=== PATIENT | male | born 1975 | race Caucasian/White ===

== ENCOUNTER 2023-12-19 18:21 | Emergency (ER) | payer OTHER, SELFPAY ==
--- NOTE | ~2023-12-19 | CT_ITS ---
EXAMINATION: CT abdomen pelvis wo con DATE: 12/19/2023 19:32 INDICATION: Right flank pain TECHNIQUE: Computed tomography (CT) of the abdomen and pelvis was performed without intravenous contr ast. The dose-length product was 405.19 mGy-cm. Automated exposure control and iterative reconstructi on technique were employed. COMPARISON: None. FINDINGS: Lung bases unremarkable. Heart size normal. No significant pleural or pericardial effusion. The liver, spleen, pancreas, adrenal glands and kidneys are unremarkable. No renal/ureteral stones o r hydronephrosis. Bladder is unremarkable. No abnormal pelvic masses or fluid collections. There is m ild thickening of the sigmoid colon with colonic diverticulosis and subtle pericolonic fatty infiltra tion, suspicious for mild acute diverticulitis. Small fat-containing umbilical hernia. No abnormal pe lvic masses or fluid collections. IMPRESSION: 1. Possible mild uncomplicated sigmoid diverticulitis. No evidence for perforation or abscess. Reviewed, dictated and finalized at location B. IMPRESSION: 1. Possible mild uncomplicated sigmoid diverticulitis. No evidence for perforat ion or abscess.
[2023-12-19 18:21] VITALS: BP 132/70; PULSE 52; RESP 15; TEMP 36.6; O2SAT 98
[2023-12-19] MEDS: KETOROLAC 30 MG/ML VIAL (*BKC) IM (19:08)
[2023-12-19] MEDS: LIDOCAINE 5% PATCH 1 PATCH TRANSDERM (19:09)
[2023-12-19] MEDS: diazePAM INJ (*CRX) 10 MG/2 ML SYRINGE 5 MG IM (19:11)
--- NOTE | 2023-12-19 19:18 | ED.BACK ---
HPI - Back Pain/Injury General Chief Complaint: Back Pain/Injury Stated Complaint: FLANK & LOW BACK PAIN SINSE 1500 Time Seen by Provider: 12/19/23 18:58 History of Present Illness HPI Narrative: Patient presenting here with right flank pain, denies any recent injuries but he did sneeze very hard yesterday but did not start having pain until today. He states that it comes in waves and hurts so badly that he was barely able to get to his phone to call for an ambulance. He did try taking Aleve earlier. Pain does not radiate. Has never had kidney stones before. No lower extremity pain or weakness Related Data Allergies Allergy/AdvReac Type Severity Reaction Status Date / Time No Known Allergies Allergy Verified 12/19/23 18:29 Review of Systems Review of Systems: All systems reviewed & are unremarkable except as noted in HPI and below Exam Narrative: EXAMINATION OF ORGAN SYSTEMS/BODY AREAS: Constitutional: Vital signs per nursing GENERAL:[No acute distress, non-toxic appearing.] HEAD: Normal with no signs of head trauma. EYES: EOMI, conjunctiva normal ENT: Hearing grossly intact LUNGS: Nonlabored breathing. HEART: [Regular rate and rhythm] ABD: [Soft], [nontender to palpation] EXT: Normal range of motion SKIN: [No rashes or lesions.] NEURO: [Alert and oriented x 3. No gross focal sensory or strength deficits.] PSYCH: Normal affect Course Vital Signs Vital signs: Vital Signs Temperature 98 F 12/19/23 18:21 Pulse Rate 52 L 12/19/23 18:21 Respiratory Rate 15 12/19/23 18:21 Blood Pressure 132/70 12/19/23 18:21 Pulse Oximetry 98 12/19/23 18:21 Oxygen Delivery Room Air 12/19/23 18:21 Temperature 98 F 12/19/23 18:21 Pulse Rate 60 12/19/23 21:24 Respiratory Rate 17 12/19/23 21:24 Blood Pressure 122/69 12/19/23 21:24 Pulse Oximetry 97 12/19/23 21:24 Oxygen Delivery Room Air 12/19/23 18:21 MDM - Back Pain/Injury MDM Narrative Medical decision making narrative: patient presents here with right-sided low back pain, pain does not radiate, I suspect most likely musculoskeletal pain/muscle spasms given the description, but I will also obtain a CT to rule out osseous cause or nephrolithiasis. Normal motor and sensory exam. Patient able to ambulate. No evidence of acute cord compression, osteomyelitis/discitis or cauda equina without saddle anesthesia, urinary retention/incontinence, numbness/tingling in lower extremities, fever, history of IV drug use, cancer or immunosuppression. Doubt AAA or aortic dissection without severe pain/discomfort or any neurovascular deficits. [Ketorolac 15mg IM and diazepam 5mg ] given for symptomatic relief On reevaluation, the symptoms are improved. Patient is able to rest more comfortably. Ambulating without difficulty. Labs within acceptable limits, patient given pain medicine which did help when he is much more comfortable on re-evaluation, CT does show uncomplicated diverticulitis, findings discussed with him, he is started on antibiotics, and he is stable for discharge with follow-up to GI and primary care. Patient is given return precautions and instructed to come back at any point in time for worsening pain Lab Data 12/19/23 20:38 12/19/23 20:38 Labs: Lab Results 12/19/23 12/19/23 Range/Units 19:45 20:38 WBC 8.3 (4.5-10.0) K/mm3 RBC 4.76 (4.6-6.20) M/mm3 Hgb 14.3 (14.0-18.0) g/dL Hct 42.5 (42.0-52.0) % MCV 89.3 (80-100) fl MCH 30.0 (26-34) pg MCHC 33.6 (32-36) g/dl RDW 14.3 (11.5-14.5) % Plt Count 265 (150-375) k/mm3 MPV 10.5 H (7.4-10.4) fl Immature Gran % (Auto) 0.4 (0-0.5) % Neut % (Auto) 73.9 H (45.5-73.1) % Lymph % (Auto) 19.0 (18.3-44.2) % [place] % (Auto) 5.6 (2.6-8.5) % Eos % (Auto) 0.7 (0-4.4) % Baso % (Auto) 0.4 (0.2-1.2) % Lymph # (Auto) 1.57 (0.9-3.2) K/mm3 [place] # (Auto) 0.5 (0.1-0.6) K/mm3 Eos # (Auto)
[2023-12-19 20:06] LABS: Appearance Urine Clear (Clear); Bilirubin Urine Negative (Negative); Blood Urine Negative (Negative); Color Urine Yellow (Yellow); Glucose Urine UA Negative (Negative); Ketones Urine 1+ mg/dL (Negative); Leukocyte Esterase Ur Negative LEU/UL (Negative); Nitrate Urine Negative (Negative); Protein Urine Negative (Negative); Specific Grav Ur 1.014 (1.001-1.035); Urobilinogen Urine 0.2 mg/dL (<2.0); pH Urine 5.5 (5.0-9.0)
[2023-12-19 20:09] LABS: Add Urine Microscopic? NO
[2023-12-19 20:43] LABS: Basophils Percent Auto 0.4 % (0.2-1.2); Eosinophils Absolute Auto 0.1 K/mm3 (0-0.3); Eosinophils Percent Auto 0.7 % (0-4.4); Hematocrit 42.5 % (42.0-52.0); Hemoglobin 14.3 g/dL (14.0-18.0); Immature Granulocyte Absolute 0.03 K/mm3 (0.00-0.031); Immature Granulocyte Percent A 0.4 % (0-0.5); Lymphocytes Absolute Auto 1.57 K/mm3 (0.9-3.2); Mean Corpuscular HGB Conc 33.6 g/dl (32-36); Mean Corpuscular Volume 89.3 fl (80-100); Mean Platelet Volume 10.5 fl (7.4-10.4); Monocytes Absolute Auto 0.5 K/mm3 (0.1-0.6); Monocytes Percent Auto 5.6 % (2.6-8.5); Neutrophils Absolute Auto 6.1 K/mm3 (1.3-6.7); Neutrophils Percent Auto 73.9 % (45.5-73.1); Platelet Count Result 265 k/mm3 (150-375); Red Blood Count 4.76 M/mm3 (4.6-6.20); Red Cell Distribution Width 14.3 % (11.5-14.5); White Blood Count 8.3 K/mm3 (4.5-10.0)
[2023-12-19 20:47] VITALS: PULSE 51; RESP 24; O2SAT 95
[2023-12-19 20:56] LABS: Anion Gap 6 mmol/L (4-12); Blood Urea Nitrogen 22 mg/dL (9-20); Calcium 9.6 mg/dL (8.4-10.2); Carbon Dioxide 27 mmol/L (22-30); Chloride 106 mmol/L (98-107); Estimated CRCL calculation 67 ml/min; Estimated Glomerular Filt Rate > 60; Glucose 92 mg/dL (65-110); Magnesium 2.2 mg/dL (1.6-2.3); Sodium 139 mmol/L (137-145)
[2023-12-19] MEDS: AMOXICILLIN/CLAVULANATE K 875-125 MG TAB 1 TABLET PO (21:18)
[2023-12-19 21:24] VITALS: BP 122/69; PULSE 60; RESP 17; O2SAT 97
== END 2023-12-19 21:25 | disposition home or self-care (01) ==
PROVIDERS: Emergency Provider Emergency Medicine; PCP Family Medicine
DX: K57.92 Diverticulitis of intestine, part unspecified, without perforation or abscess without bleeding (principal); M54.50 Low back pain, unspecified
CPT/HCPCS: 36415; 74176; 80048; 81003; 83735; 85025; 96372; 99284; A9270; J1885; J3360

== ENCOUNTER 2024-02-22 07:02 | Outpatient (CLI) | payer OTHER, SELFPAY ==
--- NOTE | ~2024-02-22 | MR_ITS ---
Procedure: MR lumbar spine wo con Ordering provider: Vernon Velasquez History: . Low back pain . Comparison: None. Technique: MRI lumbar spine without contrast. FINDINGS: SPINAL CORD: Normal. The cord ends at the level of L1-L2. VERTEBRAL BODIES: Normal height and alignment. No compression fracture. Normal marrow signal. DISK SPACES: Normal. Very Mild diffuse disc bulge at the level of L3-L4, L4-5 and L5-S1. No intervert ebral foraminal narrowing with root compression. STENOSIS: None. PARASPINOUS SOFT TISSUES: Normal. IMPRESSION: No compression fracture or stenosis of the lumbar spine. Reviewed, dictated and finalized at location A.
== END 2024-02-22 07:03 ==
LOC: MICIMG 07:03
DX: M54.50 Low back pain, unspecified (principal)
CPT/HCPCS: 72148